=== PATIENT | female | born 1975 | race Caucasian/White ===

== ENCOUNTER 2016-09-25 15:53 | Emergency (ER) | payer SELFPAY ==
[2016-09-25] MEDS ORDERED: 0.9 % SODIUM CHLORIDE 1,000 ML IV ONE (16:01)
[2016-09-25] MEDS ORDERED: ONDANSETRON HCL/PF 4 MG/ 2ML VIAL IVP ONE (16:01)
[2016-09-25 17:04] LABS: MEAN CORPUSCULAR HEMOGLOBIN 32.5 pg (28.0-34.0); MEAN CORPUSCULAR VOLUME 94.4 fl (80.0-100.0)
--- NOTE | 2016-09-25 17:11 | ED Physician Documentation ---
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 Patient reports multiple episodes of diarrhea and vomiting; patient c/o fever and chills. 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.) - Associated Symptoms Description of Stools: diarrhea Abdominal Pain: cramping, diffuse Other Related Symptoms: nausea, vomiting - ROS CONST: fever, chills SKIN/LYMPH: denies: leg swelling, rash, swollen glands, ankle swelling, other CVS/RESP: none GI/: denies: rectal intercourse, problems urinating, testicular pain, foreign body, genital pain, other LNMP: 09/25/16 EYES/ENT: denies: problems with vision, sore throat, nose bleed MS: none NEURO/PSYCH: headache - PAST HX Past History: other (anxiety) Surgeries/Procedures: other (T&A) Allergies/Adverse Reactions: Allergies Allergy/AdvReac Type Severity Reaction Status Date / Time No Known Allergies Allergy Unverified 09/25/16 16:27 Home Medications: Ambulatory Orders Medication Instructions Recorded Gabapentin [Gabapentin] 300 mg PO TID 09/25/16 - SOCIAL HX Smoking History: cigarettes Alcohol Use: heavy Drug Use: methamphetamines - FAMILY HX Family History: denies: none - VITAL SIGNS Vital Signs: Vital Signs Temp Pulse Resp BP Pulse Ox 98.2 F 80 16 105/53 96 09/25/16 16:05 09/25/16 18:46 09/25/16 18:46 09/25/16 18:46 09/25/16 16:05 - REVIEWED ASSESSMENTS Nursing Assessment Reviewed: Yes Vitals Reviewed: Yes Progress - Progress Progress: No urine drug screens available at this time. Will send out. No diarrhea or vomiting while in ER. Discharged back to [facility] ED Results Lab/Radiology - Lab Results Lab Results: Lab Results 09/25/16 09/25/16 09/25/16 18:00 17:00 17:00 WBC 10.80 K/ul K/ul (4.00-12.00) RBC 4.22 M/ul M/ul (3.90-5.20) Hgb 13.7 g/dL g/dL (12.0-16.0) Hct 39.8 % % (34.5-46.5) MCV 94.4 fl fl (80.0-100.0) MCH 32.5 pg pg (28.0-34.0) MCHC 34.5 g/dL g/dL (30.0-36.0) RDW 12.3 % % (11.3-14.3) Plt Count 217 K/mm3 K/mm3 (130-400) Seg Neutrophils % 86 % H % (39-79) Band Neutrophils % 6 % % (0-12) Lymphocytes % 2 % L % (16-50) Monocytes % 3 % % (0-11) Eosinophils % 2 % % (0-7) Basophils % 1 % % (0-2) Plt Morphology Comment Normal (NORMAL) RBC Morph Comment Normal (NORMAL) Sodium 138 mmol/L mmol/L (136-145) Potassium 3.5 mmol/L mmol/L (3.5-5.0) Chloride 105 mmol/L mmol/L (98-110) Carbon Dioxide 30 mmol/L mmol/L (20-32) BUN 11 mg/dL mg/dL (10-26) Creatinine 0.5 mg/dL mg/dL (0.4-1.5) Estimated Creat Clear 171 Est GFR ( Amer) > 60 (60 - ) Est GFR (Non-Af Amer) > 60 (60 - ) Glucose 121 mg/dL H mg/dL (70-99) Calcium 9.2 mg/dL mg/dL (8.5-10.5) Total Bilirubin 0.6 mg/dL mg/dL (0.2-1.2) AST 13 U/L U/L (0-41) ALT 11 U/L U/L (0-45) Alkaline Phosphatase 50 U/L U/L (46-116) Total Protein 7.3 g/dL g/dL (6.0-8.5) Albumin 4.4 g/dL g/dL (3.0-5.5) Urine Color Yellow (YELLOW) Urine Appearance Clear (CLEAR) Urine pH 5.5 (5.0 - 8.0) Ur Specific [place] 1.015 (1.010-1.030) Urine Protein Negative mg/dL mg/dL (NEGATIVE) Urine Ketones Negative mg/dL mg/dL (NEGATIVE) Urine Occult Blood Negative (NEGATIVE) Urine Nitrite Negative (NEGATIVE) Urine Bilirubin Negative (NEGATIVE) Urine Urobilinogen 0.2 Eu Eu (0.2-1.0) Ur Leukocyte Esterase Negative (NEGATIVE) Urine Glucose Negative mg/dL mg/dL (NEGATIVE) - Orders Orders: ED Orders Category Date Time Status Place Saline Lock/IV NOW Care 09/25/16 16:01 Active CBC/PLATELET/DIFF Stat Lab 09/25/16 17:00 Completed CMP Stat Lab 09/25/16 17:00 Completed UA W/MICRO IF INDICATED Stat Lab 09/25/16 18:00 Completed Urine drug screen [DRUG SCREEN URINE MEDICAL ONLY] Lab 09/25/16 Ordered Urgent 0.9 % Sodium Chloride [Normal Saline] 1,000 ml Med 09/25/16 16:01 Discontinued IV NOW Ondansetron HCl/Pf [Zofran 4 mg/2 ml] Med 09/25/16 16:01 Discontinued 4 mg IVP NOW ONE Abdominal Pain Physical Exam - Physical Exam General Appearance: moderate distress EENT: eye inspection normal, ENT inspection normal, pharynx normal, no signs of dehydration, CAM, no nystagmus, TM's nml RESPIRATORY: no resp distress, chest non-tender, breath sounds normal CVS: reg rate & rhythm, heart sounds normal, equal pulses, no murmur, no gallop , PMI nml, no JVD, no friction rub, 24 ABDOMEN: soft, no organomegaly, normal bowel sounds, no abdominal bruit, no distension, tenderness (epigastric) SKIN: normal color, warm/dry, NR, INT, PAL, DR EXTREMITIES: non-tender, normal range of motion, no evidence of injury, no edema , J, [employer]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 X3, CN's nml as tested, motor nml, sensation nml Vital Signs: Vital Signs Temp Pulse Resp BP Pulse Ox 98.2 F 80 16 105/53 96 09/25/16 16:05 09/25/16 18:46 09/25/16 18:46 09/25/16 18:46 09/25/16 16:05 Discharge Clincal Impression: Nausea alone Abdominal pain Qualifiers: Abdominal location: epigastric Qualified Code(s): R10.13 - Epigastric pain Diarrhea Qualifiers: Diarrhea type: unspecified type Qualified Code(s): R19.7 - Diarrhea, unspecified Referrals: Primary Doctor,No [Primary Care Provider] - 2 Days Additional Instructions: Diet: Clear liquids Sprite/7-up Juices apple, white grape Gatorade/Powerade Jello Popsicles When tolerating clear liquids, advance to bland diet - such as crackers , rice, bananas or toast Return to the emergency department or call your doctor, if you are having severe abdominal pain, fever >101.0, or if there is blood in the vomit or diarrhea, or you cannot keep down liquids or solid food. Fever: Use Tylenol or Ibuprofen as needed per package directions Tylenol 500mg po q4h prn pain Ibuprofen 800mg po TID prn pain - do not take for more than 4 days. Home Medications: Ambulatory Orders Gabapentin [Gabapentin] 300 mg PO TID 09/25/16 Condition: Stable Disposition: 01 HOME, SELF-CARE Decision to Admit: NO Decision Time: 18:23
[2016-09-25 17:19] LABS: eGFR (African) > 60; eGFR (Non-African) > 60
[2016-09-25 17:25] LABS: BASOPHILS % 1 % (0-2); EOSINOPHILS % 2 % (0-7); MONOCYTES % 3 % (0-11); SEGMENTED NEUTROPHILS % 86 % (39-79)
[2016-09-25 18:05] LABS: APPEARANCE,URINE Clear (CLEAR); COLOR,URINE Yellow (YELLOW); OCCULT BLOOD,URINE Negative (NEGATIVE); PH URINE 5.5 (5.0 - 8.0); UROBILINOGEN URINE 0.2 Eu (0.2-1.0)
[2016-09-25 18:48] VITALS: BP 105/53
== END 2016-09-25 18:44 | disposition home or self-care (01) ==
LOC: ED 15:53
DX: R10.9 Unspecified abdominal pain (principal); R11.2 Nausea with vomiting, unspecified; R19.7 Diarrhea, unspecified
CPT/HCPCS: 80053; 80377; 81002; 85025; J2405; J7030; 96361; 96374; 99283; G0481; S1016